=== PATIENT | female | born 1975 | race Caucasian/White ===

== ENCOUNTER 2025-01-09 06:25 | Day surgery (SDC) | payer BC ==
[2025-01-09 06:57] VITALS: RESP 16
[2025-01-09] MEDS ORDERED: Lactated Ringers 1,000 ML IV SCH (07:00)
[2025-01-09 07:17] LABS: HCG SERUM TEST NEGATIVE (NEGATIVE)
[2025-01-09] MEDS ORDERED: propofoL IV ONE ×3 (07:58→08:22)
[2025-01-09] MEDS ORDERED: Versed 2 MG/2 ML Injection ONE (07:58)
[2025-01-09 08:52] VITALS: TEMP 98; O2SAT 97
[2025-01-09 09:05] VITALS: BP 140/77; PULSE 77
--- NOTE | 2025-01-10 09:52 | OP ---
SURGERY DATE/TIME: 01/09/2025 [id number] PREOPERATIVE DIAGNOSIS: Screening colonoscopy. POSTOPERATIVE DIAGNOSIS: Sigmoid colon polyps x2. PROCEDURE: Colonoscopy. SURGEON: Jose J James MD ANESTHESIA: MAC by Jarad Guerra CRNA QUANTITATIVE BLOOD LOSS: Minimal. SPECIMENS: Two cold forceps polypectomies from the distal sigmoid colon. DESCRIPTION OF PROCEDURE AND FINDINGS: After informed written consent was obtained, the patient was taken to the endoscopy suite. She was placed in the left lateral decubitus position and anesthesia was titrated to the desired level of consciousness. Digital rectal exam showed normal sphincter tone and no internal lesions. Scope was inserted into the rectum, and sequentially the entire colonic mucosa was traversed. Level of the cecum was reached and verified with direct visualization of the ileocecal valve. Upon withdrawal, careful mucosal inspection revealed no abnormalities until the distal sigmoid colon was reached. There were 2 very small flat sessile polyps that appeared to be very early. They were both grasped with the cold forceps and removed with minimal blood loss and minimal mucosal disruption. The polyps were sent in the same container for pathology testing due to their close proximity. Prior to withdrawal, reflection showed no internal lesions. Scope was removed, and patient was transferred to the recovery room in good condition. She will follow up in a week for pathology results.
== END 2025-01-09 09:17 | disposition home or self-care (01) ==
LOC: SDC 06:25
PROVIDERS: ATTEND Family Medicine
DX: Z12.11 Encounter for screening for malignant neoplasm of colon (principal); K63.5 Polyp of colon
CPT/HCPCS: 36415; 84703; 88305; J2250; J2704